=== PATIENT | female | born 1940 | race Caucasian/White ===

== ENCOUNTER 2024-03-12 11:19 | Emergency (ER) | payer MEDICARE, SELFPAY ==
[2024-03-12 11:39] VITALS: BP 142/65; PULSE 83; RESP 18; TEMP 36.8; O2SAT 96; BMI 27.7
--- NOTE | 2024-03-12 12:00 | ED_ITS ---
Discharge Plan Disposition Patient Disposition: Home, Self-Care Condition: Good Prescriptions Prescriptions: New amoxicillin 875 mg tablet 875 mg PO Q12H Qty: 20 0RF benzonatate 100 mg capsule 100 mg PO TIDP PRN (Reason: Cough) Qty: 30 0RF No Action gabapentin 400 mg capsule 400 mg PO DAILY Patient Comments: TAKE 1 CAPSULE BY MOUTH THREE TIMES DAILY levothyroxine 100 mcg tablet 100 mcg PO DAILY losartan 25 mg tablet 25 mg PO DAILY Patient Comments: TAKE 1 TABLET BY MOUTH ONCE DAILY Novolin N NPH U-100 Insulin 100 unit/mL suspension 100 unit SQ DIRECTED Referrals Follow up/Referrals: Provider,Referral, MD [Primary Care Provider] - See instructions Activity Restrictions/Add. Instructions Additional Instructions/Restrictions: Drink plenty of fluids. Take tylenol for pain or fever. Take the medications as directed. Follow up with your regular doctor. GO TO THE ER FOR ANY WORSENING SYMPTOMS Clinical Impressions Clinical Impression: Sinusitis Instructions Patient Instructions: Sinusitis, DI for Sinusitis, Ceftriaxone Injection, Dexamethasone Injection Print Language Print Language: Ukrainian Discharge ED Provider: Wilber Rodriguez [facility] General Stated complaint: cough left eye watering right ear pain Mode of Arrival: Ambulatory Source of Information: Patient Time Seen by Provider: 03/12/24 12:00 Description of Symptoms (Recalled from Triage Doc. by RN): COUGHING, HEAD CONGESTION WITH GREEN DRAINAGE, LEFT EYE RED AND SWOLLEN, EAR PAINS, NOT IMPROVING WITH OTC MEDS HEENT Symptoms (Recalled from RN notes): Yes Resp Symptoms (Recalled from RN notes): No Skin Symptoms (Recalled from RN notes): No MS Symptoms (Recalled from RN notes): No Functional Status (Recalled from RN notes): WNL Related Data Home Medications ?Medication ?Instructions ?Recorded ?Confirmed gabapentin 400 mg capsule 400 mg PO DAILY 03/12/24 03/12/24 insulin NPH isoph U-100 human 100 100 unit SQ DIRECTED 03/12/24 03/12/24 unit/mL subcutaneous suspension (Novolin N NPH U-100 Insulin isophane) levothyroxine 100 mcg tablet 100 mcg PO DAILY 03/12/24 03/12/24 losartan 25 mg tablet 25 mg PO DAILY 03/12/24 03/12/24 Previous Rx's ?Medication ?Instructions ?Recorded amoxicillin 875 mg tablet 875 mg PO Q12H #20 tabs 03/12/24 benzonatate 100 mg capsule 100 mg PO TIDP PRN Cough #30 caps 03/12/24 Allergies Allergy/AdvReac Type Severity Reaction Status Date / Time No Known Allergies Allergy Verified 03/12/24 11:41 Worker's Comp Is this a Worker's Comp case?: No [facility] Disclaimer: The information contained in this section may have been updated after the patient was seen, as this information can be updated by other users. Medical History (Updated 03/12/24 @ 12:39 by Wilber Rodriguez APRN) Diabetes mellitus Social History Smoking Status: Never smoker alcohol intake: never current occupational status: retired ROS Obtained: Yes All systems reviewed & no additional complaints except as documented Constitutional Constitutional: Denies chills, Reports fever(s) and Reports poor appetite Eyes Eyes: Denies eye discharge ENT Ears, Nose, Mouth, and Throat: Denies ear discharge, Reports otalgia, Denies hearing loss, Denies sinus pain and Reports sore throat Cardiovascular Cardiovascular: Denies chest pain and Denies dyspnea Respiratory Respiratory: Denies chest congestion, Reports cough and Denies dyspnea Gastrointestinal Gastrointestingal: Denies abdominal pain, diarrhea, nausea or vomiting Musculoskeletal Musculoskeletal: Denies arthralgias Integumentary/Breasts Skin/Breast: Denies rash Physical Exam General General appearance: alert and in no apparent distress Head Head exam: atraumatic, normocephalic and normal inspection Eye Eye exam: Present normal appearance; Absent PERRL or EOMI ENT ENT exam: Present mucous membranes moist and normal external ear exam Expanded ENT Exam TM/Canal exam: Bilateral TM: erythema, bulging and effusion Nose exam: Absent sinus tenderness Nasal speculum exam: Bilateral: normal Mouth exam: Present normal external inspection and other; Absent drooling Teeth exam: Present normal inspection Throat exam: Present tonsillar erythema and tonsillomegaly Neck Neck exam: Present normal inspection, full ROM and trachea midline; Absent tenderness, meningismus or lymphadenopathy Chest Chest inspection: Present normal inspection and symmetric chest wall rise; Absent tenderness Respiratory Respiratory exam: Present normal lung sounds bilaterally; Absent respiratory distress, wheezes or stridor Cardiovascular Cardiovascular exam: Present regular rate, normal rhythm and normal heart sounds; Absent tachycardia or irregular rhythm Abdominal Exam Abdominal exam: Present soft and normal bowel sounds; Absent distention, tenderness, guarding, rebound or rigidity Extremities Exam Extremities exam: Present normal inspection and normal capillary refill; Absent tenderness, joint swelling or calf tenderness Back Exam Back exam: Present normal inspection and full ROM; Absent tenderness, CVA tenderness (R) or CVA tenderness (L) Neurological Exam Neurological exam: Present alert, oriented X3, CN II-XII intact, normal gait and reflexes normal; Absent motor sensory deficit Psychiatric Psychiatric exam: Present normal affect and normal mood Skin Skin exam: Present warm, dry, intact and normal color Lymphatic Lymphatic Findings: no adenopathy Medical Decision Making Medical Records Medical records reviewed: No I reviewed the patient's medical records. Screening: Per USPSTF and CDC recommendations, given the prevalence of disease in our region, it is our hospital?s policy to screen for HIV and viral Hepatitis for all patients aged 18 and over and those with ongoing risk factors. John Inquiry Pt receiving controlled substance: No Vital Signs: 03/12/24 11:39 Temperature 98.3 F Temperature Source Oral Pulse Rate [Left Radial] 83 Respiratory Rate 18 Blood Pressure [Left Arm] 142/65 H Blood Pressure Mean [Left Arm] 90 02 Sat by Pulse Oximetry 96
[2024-03-12] MEDS: DEXAMETHASONE 4MG/ML 1ML VIAL 6 MG IM (12:15)
[2024-03-12] MEDS: cefTRIAXone 1GM VIAL 1 GM IM (12:15)
[2024-03-12] MEDS: LIDOCAINE 1% 5ML PF VIAL IM (12:16)
[2024-03-12 12:41] VITALS: BP 0/0; PULSE 83; RESP 18; TEMP 36.8
== END 2024-03-12 12:43 | disposition home or self-care (01) ==
PROVIDERS: Emergency Provider Nurse Practitioner Family
DX: J01.90 Acute sinusitis, unspecified (principal)
CPT/HCPCS: 96372; 99213; G0381; J0696; J1100

== ENCOUNTER 2024-03-22 10:37 | Emergency (ER) | payer MEDICARE, SELFPAY ==
[2024-03-22 11:00] VITALS: BP 149/70; PULSE 89; RESP 23; TEMP 36.6; O2SAT 93; BMI 27.7
--- NOTE | 2024-03-22 11:00 | ED_ITS ---
Discharge Plan Disposition Patient Disposition: Home, Self-Care Condition: Good Prescriptions Prescriptions: New azithromycin [Zithromax] 250 mg tablet 250 mg PO UD DOSE PK Qty: 6 0RF Rx Instructions: Take two (2) tablets today, then one (1) tablet days #2 thru #5 benzonatate 100 mg capsule 100 mg PO TIDP PRN (Reason: Cough) Qty: 30 0RF methylprednisolone 4 mg Tablets,Dose Pack 4 mg PO DIRECTED 6 Days Qty: 21 0RF Rx Instructions: Take 1 pack as directed for 6 days No Action gabapentin 400 mg capsule 400 mg PO HS Patient Comments: TAKE 1 CAPSULE BY MOUTH AT BEDTIME levothyroxine 100 mcg tablet 100 mcg PO DAILY Patient Comments: TAKE 1 TABLET BY MOUTH IN THE MORNING cyanocobalamin (vitamin B-12) 1,000 mcg/mL solution 1,000 mcg IM WEEKLY Novolin R Regular U100 Insulin 100 unit/mL solution See Rx Instructions .ROUTE .COMPLEX Rx Instructions: . losartan 25 mg tablet 25 mg PO DAILY Patient Comments: TAKE 1 TABLET BY MOUTH ONCE DAILY nitrofurantoin monohyd/m-cryst 100 mg capsule 100 mg PO DAILY Patient Comments: TAKE 1 CAPSULE BY MOUTH ONCE DAILY WITH FOOD Referrals Follow up/Referrals: Provider,Referral, MD [Primary Care Provider] - See instructions Activity Restrictions/Add. Instructions Additional Instructions/Restrictions: Drink plenty of fluids. Take tylenol or ibuprofen for pain or fever. Take the medications as directed. Follow up with your regular doctor. GO TO THE ER FOR ANY WORSENING SYMPTOMS Don't start the oral steroids (medrol dose pack) until tomorrow since you had the shot here Clinical Impressions Clinical Impression: Acute bronchitis Instructions Patient Instructions: DI for Acute Bronchitis, Dexamethasone Injection Print Language Print Language: Kiswahili Discharge ED Provider: Wilber Rodriguez [facility] HPI General Stated complaint: cough, soa, congested Time Seen by Provider: 03/22/24 11:00 History of Present Illness Provider Complaint: She states that she has had worsening chest and sinus congestion for the past 3 days. She was here about 10 days ago with similar symptoms. She states that she did get some better while on the medications. Related Data Home Medications ?Medication ?Instructions ?Recorded ?Confirmed cyanocobalamin (vitamin B-12) 1,000 mcg IM WEEKLY 03/22/24 03/22/24 1,000 mcg/mL injection solution gabapentin 400 mg capsule 400 mg PO HS 03/22/24 03/22/24 insulin regular human 100 unit/mL See Rx Instructions .Route .COMPLEX 03/22/24 03/22/24 injection solution (Novolin R Regular U-100 Insulin) levothyroxine 100 mcg tablet 100 mcg PO DAILY 03/22/24 03/22/24 losartan 25 mg tablet 25 mg PO DAILY 03/22/24 03/22/24 nitrofurantoin 100 mg PO DAILY 03/22/24 03/22/24 monohydrate/macrocrystals 100 mg capsule Previous Rx's ?Medication ?Instructions ?Recorded azithromycin 250 mg tablet 250 mg PO UD DOSE PK #6 tabs 03/22/24 (Zithromax) benzonatate 100 mg capsule 100 mg PO TIDP PRN Cough #30 caps 03/22/24 methylprednisolone 4 mg tablets in 4 mg PO DIRECTED 6 days #21 tabs 03/22/24 a dose pack Allergies Allergy/AdvReac Type Severity Reaction Status Date / Time No Known Allergies Allergy Verified 03/12/24 11:41 [facility] Disclaimer: The information contained in this section may have been updated after the patient was seen, as this information can be updated by other users. Medical History (Updated 03/22/24 @ 12:33 by Wilber Rodriguez APRN) Cancer Thyroid disease Kidney stone Urinary tract infection Diabetes mellitus, type 2 History of stroke Hypertension Diabetes mellitus Surgical History (Updated 03/22/24 @ 11:16 by aRchael Thompson RN) History of cholecystectomy History of appendectomy History of hysterectomy Social History (Updated 03/13/24 @ 19:54 by Wilber Rodriguez APRN) Smoking Status: Never smoker alcohol intake: never current occupational status: retired Travel in the last 8 weeks: None ROS Obtained: Yes All systems reviewed & no additional complaints except as documented Constitutional Constitutional: Reports poor appetite Eyes Eyes: Reports system reviewed and no additional complaints, except as documented ENT Ears, Nose, Mouth, and Throat: Reports as per HPI Cardiovascular Cardiovascular: Reports system reviewed and no additional complaints, except as documented and Denies chest pain Respiratory Respiratory: Denies shortness of breath, Reports chest congestion, Reports cough, Denies stridor and Denies wheezing Gastrointestinal Gastrointestingal: Reports system reviewed and no additional complaints, except as documented; Denies abdominal pain, diarrhea or vomiting Musculoskeletal Musculoskeletal: Reports system reviewed and no additional complaints, except as documented and Denies arthralgias Integumentary/Breasts Skin/Breast: Reports system reviewed and no additional complaints, except as documented and Denies rash Neurologic Neurologic: Denies paresthesias Allergic/Immunologic Allergic/Immunologic: Denies wheezing Physical Exam General General appearance: alert and in no apparent distress Eye Eye exam: Present normal appearance, PERRL and EOMI ENT ENT exam: Present mucous membranes moist and normal external ear exam Expanded ENT Exam External ear exam: Present normal external inspection TM/Canal exam: Bilateral TM: erythema and bulging Nose exam: Absent sinus tenderness Nasal speculum exam: Bilateral: normal Mouth exam: Present normal external inspection; Absent drooling Teeth exam: Present normal inspection Throat exam: Present tonsillar erythema and tonsillomegaly Neck Neck exam: Present normal inspection, full ROM and trachea midline; Absent tenderness, lymphadenopathy or thyromegaly Chest Chest inspection: Present normal inspection and symmetric chest wall rise; Absent tenderness or rash Respiratory Respiratory exam: Present normal lung sounds bilaterally; Absent respiratory distress, wheezes, stridor or accessory muscle use Cardiovascular Cardiovascular exam: Present regular rate, normal rhythm and normal heart sounds Abdominal Exam Abdominal exam: Present soft; Absent distention, tenderness, guarding, rebound or rigidity Extremities Exam Extremities exam: Present normal inspection, full ROM and normal capillary refill; Absent tenderness or calf tenderness Back Exam Back exam: Present normal inspection and full ROM; Absent tenderness Neurological Exam Neurological exam: Present alert and oriented X3 Psychiatric Psychiatric exam: Present normal affect and normal mood Skin Skin exam: Present warm, dry, intact and normal color Lymphatic Lymphatic Findings: no adenopathy Medical Decision Making Medical Records Medical records reviewed: No I reviewed the patient's medical records. Screening: Per USPSTF and CDC recommendations, given the prevalence of disease in our region, it is our hospital?s policy to screen for HIV and viral Hepatitis for all patients aged 18 and over and those with ongoing risk factors. John Inquiry Pt receiving controlled substance: No Lab Data Lab results reviewed: Yes I reviewed the patient's lab results.
--- NOTE | 2024-03-22 11:04 | XR_ITS ---
FINAL REPORT CLINICAL HISTORY: Nonspecific cough, congestion COMPARISON: None FINDINGS: Two views of the chest were obtained. The heart size and pulmonary vascularity are within normal limits. The mediastinum is normal. There are mild left base opacities which likely represent atelectasis or pneumonia. There is no pneumothorax. The bony thorax is intact. IMPRESSION: Probable left base atelectasis or pneumonia. Reviewed, Interpreted and Dictated by Evangelista Pak III, MD Transcribed by Ana Peter Authenticated and [facility]
[2024-03-22] MEDS: DEXAMETHASONE 4MG/ML 1ML VIAL 8 MG IM (12:25)
[2024-03-22] MEDS: LIDOCAINE 1% 5ML PF VIAL IM (12:25)
[2024-03-22] MEDS: cefTRIAXone 1GM VIAL 1 GM IM (12:25)
[2024-03-22 12:32] VITALS: BP 149/70; PULSE 89; RESP 23; TEMP 36.6; O2SAT 93
[2024-03-22 12:44] LABS: Coronavirus 19, PCR Not Detected (NotDetected); Influenza A, PCR Not Detected (NotDetected); Influenza B, PCR Not Detected (NotDetected)
[2024-03-22 13:36] LABS: RSV Rapid Ab Screen Negative (Negative)
== END 2024-03-22 12:43 | disposition home or self-care (01) ==
PROVIDERS: Emergency Provider Nurse Practitioner Family
DX: J20.9 Acute bronchitis, unspecified (principal)
CPT/HCPCS: 71046; 87636; 87807; 96372; 99213; G0381; J0696; J1100

== ENCOUNTER 2025-02-21 12:41 | Outpatient (CLI) | payer MEDICARE, SELFPAY ==
--- OUTSIDE RECORDS SUMMARY | 2025-02-22 14:15 | XMS_ITS | Continuity of Care Document ---
Author Organization [facility] Nimisha GarciaNAPLES Address [address] Care Team Providers Care [employer] Cook Name Role Phone ROCA, GILBERTO Primary Care Provider NANCI SANTIZO Applied Psychology Professor Unavailable SHASTA CARLSON [employer] Operations Engineer Assessment No assessment recorded. Plan of Treatment Reminders Order Date Submit Date Provider Last Modified By Organization Details Last Modified Time Details Appointments *Follow- up 15 2024 09:00A Sharita SANTIZO NP Not available Not available Not available Lab None recorded . Referral None recorded . Procedures None recorded . Surgeries None recorded . Imaging electroc ardiogra m 2024 [address] [place] In-Office Order, Internal Use Only DO Not Attach Compendium DO Not Attach Compendium, Do Not Delete/merge, [id number] 12/29/2024 13:41:08 SPECT, myocardi al perfusio n, multiple [address] (Central Scheduling), [address] [place], [address], 02/20/2025 11:43:40 US, doppler echocard iogram, w/ color flow [address] ([facility]), [address] [place], [address], 02/20/2025 11:43:53 Medication Orders losartan 50 mg tablet 2024 025 [facility], [address], [place], [address], 12/29/2024 11:13:06 Patient TargetsNo targets recorded. Patient InstructionsNo instructions recorded. Reason for Referral None Reported. Results Created Date Observation Date Name Description Value Unit Range Abnormal Flag Note LastModifiedBy Organization Detail LastModifiedTime 12/28/19 elect rocar diogr am No observ ation record ed. [facility]ER In-Office Order Internal Use Only DO Not Attach Compendium DO Not Attach Compendium, Do Not Delete/merge, [id number] 12/29/2024 10:10:13 12/30/19 elect rocar diogr am No observ ation record ed. [email or web address] Not Available 14:54:11 Result Notes None recorded. 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 446953643 Active 2024 NANCI SANTIZO NP [address], [place], [address] , [place] - [facility] 17:05:30 Chronic depression 850241114 Active [address], [place], [address] , [place] - [facility] 17:05:47 Generalized anxiety disorder 00369713 Active 20[address], [place], [address] , [place] [facility] 17:05:53 Hypothyroidis m 76272129 Active 20[address], [place], [address] , [place] - [facility] 17:06:18 Chronic kidney disease 972493175 Active 2024 NANCI SANTIZO, SNAG GRINDER [address] [facility] [address], [place], [address] , [place] - [facility] 17:06:30 Problem Notes None recorded. Procedures Surgical History Date Name Laterality Status Provider Name and Address Organization Details Recorded Time 04/13/19 23 Colon Surgery completed Danette [place] - [facility] 12/29/2024 10:25:05 04/13/19 16 screening for malignant neoplasm of colon completed Danette [place] - [facility] 12/29/2024 10:24:49 04/13/19 08 dissection of lymph node completed Danette [place] - [facility] 12/29/2024 10:24:18 04/13/19 06 Lumbar Spine Surgery completed Danette [place] - [facility] 12/29/2024 10:23:18 04/13/18 76 Back Surgery completed Danette [place] - [facility] 12/29/2024 10:22:57 04/13/18 75 Cholecystectomy completed Sold [place] - [facility] 12/29/2024 10:21:50 04/13/18 74 thyroidectomy completed Danette [place] - [facility] 12/29/2024 10:22:00 04/13/18 72 Hysterectomy completed Danette [place] - [facility] 12/29/2024 10:20:09 04/13/18 68 kidney operation completed Danette [place] - [facility] 12/29/2024 10:20:14 Imaging Results None recorded. Procedure Notes None recorded. Medical Equipment None Reported. Allergies No known drug allergies Medications Name Sig Start Date Stop Date Status Note LastModified by Organization Details LastModified Time losartan 50 mg tablet TAKE 1 TABLET BY MOUTH ONCE DAILY IN THE MORNING active Not Available Not Available No t Available azithromyci n 250 mg tablet TAKE 2 TABLETS BY MOUTH ON DAY 1, AND THEN TAKE 1 TABLET BY MOUTH ONCE A DAY ON DAY 2 THROUGH DAY 5 12/28 completed Not Available Not Available Not Available Novolin N NPH U-100 Insulin isophane 100 unit/mL subcutaneou s susp INJECT 50 UNITS SUBCUTANE OUSLY TWICE DAILY DIRECTED active Not Available Not Available No t Available gabapentin 400 mg capsule TAKE 1 CAPSULE BY MOUTH NIGHTLY active Not Available Not Available No t Available prednisone 5 mg tablet TAKE 1 TABLET BY MOUTH TWICE DAILY 12/29 completed Not Available Not Available Not Available ciprofloxac in 500 mg tablet TAKE 1 TABLET BY MOUTH TWICE DAILY 12/28 completed Not Available Not Available Not Available levothyroxi ne 100 mcg tablet TAKE 1 TABLET BY MOUTH IN THE MORNING active Not Available Not Available No t Available amoxicillin 875 mg tablet TAKE 1 TABLET BY MOUTH EVERY 12 HOURS FOR 10 DAYS 12/28 completed Not Available Not Available Not Available Novolin R Regular U-100 Insulin 100 unit/mL injection solution INJECT 15 UNITS SUBCUTANE OUSLY TWICE DAILY active Not Available Not Available No t Available imiquimod 5 % topical cream packet APPLY TO THE AFFECTED AREA(S) ON RIGHT HAND BY TOPICAL ROUTE ONCE DAILY AT NIGHT AND WASH OFF NEXT MORNING FOR 2 WEEKS THEN STOP FOR 2 WEEKS (THAT IS ONE CYCLE) REPEAT 2 MORE CYCLES FOR A TOTAL OF 6 WEEKS OF TREATMENT 12/29 completed Not Available Not Available Not Available benzonatate 100 mg capsule TAKE 1 CAPSULE BY MOUTH THREE TIMES DAILY NEEDED FOR COUGH 12/29 completed Not Available Not Available Not Available cyanocobala min (vit B-12) 1,000 mcg/mL injection solution INJECT 1 ML (CC) SUBCUTANE OUSLY ONCE EVERY MONTH 12/29 completed Not Available Not Available Not Available losartan 25 mg tablet TAKE 1 TABLET BY MOUTH ONCE DAILY active Not Available Not Available No t Available hydrochloro thiazide 12.5 mg capsule TAKE 1 CAPSULE BY MOUTH ONCE DAILY IN THE MORNING 12/29 completed Not Available Not Available Not Available cefuroxime axetil 500 mg tablet TAKE 1 TABLET BY MOUTH EVERY 12 HOURS FOR 5 DAYS 12/28 completed Not Available Not Available Not Available methylpredn isolone 4 mg tablets in a dose pack TAKE BY MOUTH DIRECTED ON INSIDE OF PACKAGE 12/29 completed Not Available Not Available Not Available nitrofurant oin monohydrate /macrocryst als 100 mg capsule TAKE 1 CAPSULE BY MOUTH ONCE DAILY WITH FOOD FOR 90 DAYS 12/29 completed Not Available Not Available Not Available magnesium active Not Available Not Layne ilable Not Available Fish Oil active Not Available Not Avai lable Not Available Vitamin D3 active Not Available Not Av ailable Not Available Centrum active Not Available Not Avail able Not Available alpha lipoic acid active Not Available Not Available Not Available Accu-Chek Guide test strips USE 1 UP TO 4 TIMES DAILY active Not Available Not Available No t Available Accu-Chek Guide Glucose Meter USE UP TO 4 TIMES DAILY active Not Available Not Available No t Available FreeStyle Hi 14 Day Sensor kit USE DIRECTED REPLACE SENSOR EVERY 14 DAYS active Not Available Not Available No t Available turmeric active Not Available Not Avai lable Not Available Ultra-Fine Insulin Syringe 0.5 mL 31 gauge x 5/16 USE 1 SYRINGE TWICE DAILY active Not Available Not Available No t Available Vitals Date Recorded Body height Body mass index (BMI) Body weight Heart rate Oxygen saturation Oxygen saturation in Arterial blood by Pulse oximetry Systolic And Diastolic Provider Name and Address Organization Details Last Updated DateTime 167.64 cm 29.4 kg/m2 49658.8 1 g 86 /min 93 % 93 % 146/78 mm[Hg] Danette Linton [facility] 10:32:59 Social History Question Answer Notes LastModified by D-Sight ion Details LastModified Time Tobacco Smoking Status Never Smoker Danette rao, [facility] 12/29/2024 10:19:23 Do You Have An Advance Directive? No [email or web address] Information not available 12/29/2024 Are You Blind Or Do You Have Difficulty Seeing? No Information not available 12/29/2024 Is Blood Transfusion Acceptable In An Emergency? Yes [email or web address] Information not available 12/29/2024 What Is Your Level Of Caffeine Consumption? Moderate [email or web address] Information not available 12/29/2024 Are You Deaf Or Do You Have Serious Difficulty Hearing? No [email or web address] Information not available 12/29/2024 What Type Of Diet Are You Following? REGULAR [email or web address] Information not available 12/29/2024 Do You Have A Medical Power Of Hydrography Teacher? Yes [email or web address] Information not available 12/29/2024 Do You Use Your Seat Belt Or Car Seat Routinely? Yes [email or web address] Information not available 12/29/2024 Do You Have Smoke And Carbon Monoxide Detectors In Your Home? Yes [email or web address] Information not available 12/29/2024 Are You Passively Exposed To Smoke? No [email or web address] Information not available 12/29/2024 Have You Recently Traveled Abroad? No [email or web address] Information not available 12/29/2024 Do You Have Difficulty Walking Or Climbing Stairs? No Information not available 12/29/2024 Do You Have Any Dietary Restrictions? No [email or web address] Information not available 12/29/2024 Sex: Female Functional Status Question Answer Note LastModified by Organizat ion Details LastModified Time Do you use any illicit or recreational drugs? No [email or web address] Information not available 12/29/2024 Do you or have you ever used any other forms of tobacco or nicotine? No [email or web address] Information not available 12/29/2024 What is your level of alcohol consumption? None [email or web address] Information not available 12/29/2024 Do you have difficulty doing errands alone? Yes [email or web address] Information not available 12/29/2024 Are you able to care for yourself independently? Yes Information not available 12/29/2024 Do you have difficulty dressing, bathing, grooming, or toileting? No [email or web address] Information not available 12/29/2024 Mental Status Question Answer Note LastModified by Organization D etails LastModified Time Do you have difficulty concentrating, remembering or making decisions? No [email or web address] Information no t available 12/29/2024 Family History Relationship Description Onset Age of this Age Resolved Age Notes LastModified by Organization Details LastModified Time Mother Heart disease [email or web address] Not available 12/12 10:19:02 Son Heart disease [email or web address] Not available 12/12 10:19:02 Sister Heart disease [email or web address] Not available 12/12 10:19:11 Medical History Condition Response STROKE Y KIDNEY STONES Y DIABETES Y CHRONIC PAIN N CONGESTIVE HEART FAILURE N COPD N RHEUMATOID ARTHRITIS Y HYPERTHYROIDISM N HYPOTHYROIDISM N CAROTID BLOCKAGE N SEIZURES N DEPRESSION (INCLUDING POST ) Y THYROID DISEASE Y ATHEROSCLEROSIS N HEART STENTS N ANEURYSM N GERD N FIBROMYALGIA N CORONARY ARTERY DISEASE (CAD) N CANCER Y HERNIA N HYPERCHOLESTEROLEMIA N ARTHRITIS Y HEADACHES Y USE OF BLOOD THINNERS N EMPHYSEMA N CROHN'S DISEASE N PERIPHERAL VASCULAR DISEASE N HEARTBURN / REFLUX Y CAD N HYPERLIPIDEMIA Y BLOOD CLOTS N DVT - DEEP VEIN THROMBOSIS N ASTHMA N PULMONARY DISEASE N DEMENTIA N IMPLANTED DEFIBRILLATOR N VASCULAR DISEASE N LUNG DISORDER N HYPERTENSION Y CARDIAC ARRHYTHMIA N ANXIETY DISORDER N BLOOD TRANSFUSION N ANEMIA/BLOOD DISORDER N ATRIAL FIBRILLATION N BRAIN TUMOR N HEART DISEASE N PCOS N OSTEOARTHRITIS Y HEART ATTACK ([place]) N GLAUCOMA N Gynecological HistoryNo gynecological history recorded. Obstetrics History GPAL:G 0 P 0 0 0 0 Past Encounters Encounter ID Performer Location Encounter Start Date Encounter Closed Date Diagnosis/Indication Diagnosis SNOMED-CT Code Diagnosis ICD10 Code Diagnosis IMO Codes Diagnosis Note [id number] Raulito Jaimes MD [facility] [address] [address] 12/29/2024 10:07:12 12/29/2024 11:47:12 Chest pain 32707293 R07.9 78995952 - Reportedly with normal LHC in 1998- EKG without ST segment abnormalit ies- TTE and NST as below Essential hypertension 46235139 I10 58192 - Increase losartan- Educated about low sodium, heart healthy diet- Continue BP log and bring to f/u visit Polyneurop athy due to type 2 diabetes mellitus 979638413 E11.42 Z79.4 98409244 - Last a1c 6.2%, continue current regimen Health Concerns Section Related Observation LastModified by Organization Detai ls LastModified Time None Recorded Concern Status LastModified by Organization Details LastModified Time None Recorded Payers Encounter Date Sequence Insurance Name Policy Number Policy Roca Covered Member ID Roca Member ID Guarantor Name 12/29/2024 1 [facility] (MEDICARE REPLACEMENT/A DVANTAGE - PPO) [id number] Josie Hammond [id number] Josie Hammond Notes Date Note Type Note Provider Name and Address Organization Details Recorded Time 12/29/2024 text/html ROS as noted in the HPI 84 y/o female pt presents to clinic with complaints of chest pain. She states she has not had chest pain in a few weeks, and the chest pain is brought on by stress. She describes it as an aching sensation that radiates up her jaw and down both arms into her back. Tums and rest sometimes alleviates it, more stress aggravates it. She does admit to shortness of breath but no palpitations or edema. States that she had a left heart cath in 1998 that was within normal limits. Noted that her blood pressure is elevated at 146/78 today, she reports that BP at home runs 140-150/70s to 80s. We discussed a nuclear stress test and echocardiogram next week given she will be out of town until [place]. Follow-up after she gets back from her trip, will notify patient of test results. NANCI SANTIZO, VIDA [address] [facility] [address], [place], [address], [facility] 12/29/2024 11:22:19 OBGyn Episode No OBEpisode recorded.
--- OUTSIDE RECORDS SUMMARY | 2025-02-22 14:16 | XMS_ITS | Clinical Summary ---
Author Organization [facility] Address [address] [place] [address] Care Team Providers Care Member Of Technical Staff Name Role Phone Augie Garcia Primary Care Provider Allergies No known active allergies Medications hydrochlorothiaz oniel (HYDRODIURIL) 12.5 MG tablet Take 1 tablet by mouth Daily. 3 9 Active Alpha-Lipoic Acid 100 MG capsule Take by mouth. Activ e chlorothiazide (DIURIL) 250 MG tablet Take 250 mg by mouth Daily. Active Cholecalciferol (VITAMIN D) 2000 units tablet Take 2,000 Units by mouth Daily. Active Shelby-3 Fatty Acids (FISH OIL) 1000 MG capsule capsule Take by mouth. Activ e Multiple Vitamin (MULTIVITAMIN) tablet Take 1 tablet by mouth Daily. 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 100 each 5 9 Active NOVOLIN N 100 UNIT/ML injectionIndicat ions:Type 2 diabetes mellitus with diabetic neuropathy, unspecified whether longterm insulin use 60units am and 40 units pm 90 mL 3 0 Active insulin regular (NovoLIN R ReliOn) 100 UNIT/ML injectionIndicat ions:Type 2 diabetes mellitus with diabetic neuropathy, unspecified whether oysterman insulin use 20U tid ac + SSI if bs 150-200 2U, 201-250 4U, 251-300 6U, 301-350 8U >350 10U can call 80 mL 3 0 Active Blood Glucose Monitoring Suppl (ACCU-CHEK FLAVIA PLUS) w/Device kitIndications:T ype 2 diabetes mellitus with hypoglycemia without coma, with long-term current use of insulin 1 Device by Other route Daily. Dx. E11.9 1 kit 0 Active Accu-Chek Softclix Lancets lancetsIndicatio ns:Type 2 diabetes mellitus with hypoglycemia without coma, with long-term current use of insulin 1 each by Other route Daily. Use as instructed. Dx. E11.9 100 each 3 0 Active lisinopril (PRINIVIL,ZESTRI L) 20 MG tabletIndication s:Secondary hypertension Take 1 tablet by mouth Daily. 90 tablet 1 0 Active levothyroxine (SYNTHROID, LEVOTHROID) 100 MCG tabletIndication s:Thyroid disease Take 1 tablet by mouth Daily. 90 tablet 1 0 Active cephalexin (KEFLEX) 250 MG capsule Take 250 mg by mouth Daily. Active diclofenac (FLECTOR) 1.3 % patch patchIndications :Fusion of spine of lumbar region Apply 1 patch topically to the appropriate area as directed 2 (Two) Times a Day. 60 patch 1 0 Active glucose blood (Accu-Chek Flavia Plus) test stripIndications :Type 2 diabetes mellitus with hypoglycemia without coma, with long-term current use of insulin 1 each by Other route 4 (Four) Times a Day Before Meals & at Bedtime As Needed (hypoglycemia). Use as instructed. Dx. E11.9 500 each 3 0 Active gabapentin (NEURONTIN) 400 MG capsuleIndicatio ns:Diabetic peripheral neuropathy Take 1 capsule by mouth 3 (Three) Times a Day. 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 10/13/2018 Lumbar spinal stenosis 10/08/2012 Fusion of spine of lumbar region 04/20/2012 Overview (10/13/2018): Overview: L2-S1 Low back pain 04/20/2012 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 Immunizations Immunization Administration Dates Next Due Fluad Quad 65+ 02/07/2020 Fluzone High-Dose 65+YRS 01/24/2019 Pneumococcal Conjugate 13-Valent (PCV13) 020 Pneumococcal Polysaccharide (PPSV23) 04/13/2012 Family History Medical History Relation Name Comments Alcohol abuse Father Arthritis Father COPD Father Cancer Father Early Father Hypertension Father COPD Mother Cancer Mother Early Mother Heart disease Mother Hypertension Mother Hypertension Paternal Grandmother Stroke Paternal Grandmother Relation Name Status Comments Father Maternal Grandfather Maternal Grandmother Mother Paternal Grandfather Paternal Grandmother Social History Tobacco Use Types Packs/Day Years Used Date Smoking Tobacco: Never Smokeless Tobacco: Never Alcohol Use Standard Drinks/Week Comments No 0 (1 standard drink = 0.6 oz pur e alcohol) AUDIT-C Answer Date Recorded Frequency of Alcohol Consumption Never 10/13/2018 Average Number of Drinks Not on file 019 Frequency of Binge Drinking Not on file 06/2018 PHQ-2 Answer Date Recorded Retired Total Score 2 02/07/2020 Abuse Screen Answer Date Recorded Unsafe at Home or Work/School Not on file Feels Threatened by Someone? Not on file 01/2023 Does Anyone Keep You from Co ntacting Others or Doint Things Outside the Home? Not on file 01/20/2023 Physical Sign of Abuse Present Not on file 1 Housing Stability Answer Date Recorded Current Living Arrangements Not on file 01/11 Potentially Unsafe Housing Conditions Not on monisha e 01/20/2023 Family and Community Support Answer Martir e Recorded Help with Day-to-Day Activities Not on file 01/20/2023 Lonely or Isolated Not on file 01/20/2023 Employment Answer Date Recorded Do you want help finding or keeping work or a ricky b? Not on file 01/20/2023 Disabilities Answer Date Recorded Concentrating, Remembering, or Making Decisions Difficulty Not on file 01/20/2023 Doing Errands Independently Difficulty Not on fi le 01/20/2023 Education Answer Date Recorded Help with school or training? Not on file Preferred Language Not on file 01/20/2023 Comments No Sex and Gender Information Value Date Recorded Sex Assigned at Not on file Legal Sex Female 12:30 PM EDT Gender Identity Not on file Sexual Orientation Not on file Last Filed Vital Signs Vital Sign Reading Time Taken Comments Blood Pressure 128/62 02/07/2020 1:02 PM EDT Pulse 83 02/07/2020 1:02 PM EDT Temperature 36.7 C (98 F) 02/07/2020 1:02 PM EDT Respiratory Rate - - Oxygen Saturation 99% 02/07/2020 1:02 PM EDT Inhaled Oxygen Concentration - - Weight 82.6 kg (182 lb) 02/07/2020 1:02 PM EDT Height 172.7 cm (5' 8 ) 02/07/2020 1:02 PM EDT Body Mass Index 27.67 02/07/2020 1:02 PM EDT Plan of Treatment Health Maintenance Due Date Last Done Comments TDAP/TD VACCINES (1 - Tdap) 1959 ZOSTER VACCINE (1 of 2) 1992 RSV Vaccine - Adults (1 - 1- dose 75+ series) 2017 ANNUAL PHYSICAL 10/13/2018 DXA SCAN 03/22/2021 03/22/2019 LIPID PANEL 07/09/2021 07/09/2020, 10/13, 08/04/2019, Additional history exists INFLUENZA VACCINE 11/11/2024 02/07/2020, 01/24/2019 COVID-19 Vaccine ( - 2023-2 5 season) 2024 URINE MICROALBUMIN-CREATININ E RATIO (uACR) Discontinued 04/28/2019 Pneumococcal Vaccine 50+ Completed 08/04/2019, 04/2012 HEMOGLOBIN A1C Discontinued 11/29/2020, 08/11, 07/09/2020, Additional history exists Procedures Procedure Name Priority Date/Time Associated Diagnosis Comments HEMOGLOBIN A1C Routine 11/11/2019 11:23 AM EDT Type 2 diabetes mellitus with hypoglycemia without coma, with long-term current use of insulin LIPID PANEL Routine 11/11/2019 11:23 AM EDT Type 2 diabetes mellitus with hypoglycemia without coma, with long-term current use of insulin MICROALBUMIN / CREATININE URINE RATIO Routine 04/28/2019 9:30 AM EST Type 2 diabetes mellitus with other specified complication, unspecified whether oysterman insulin use DEXA BONE DENSITY AXIAL Routine 03/22/2019 9:48 AM EST Post-menopausal At high risk for osteoporosis from Last 3 Months or Most Recently Relevant to Health Maintenance Results * (ABNORMAL) Hemoglobin A1c (11/11/2019 11:23 AM EDT) Hemoglobin A1C 5.80(H) 4.80 - 5.60 % [facility] Comment: Hemoglobin A1C Ranges: Increased Risk for Diabetes 5.7% to 6.4% Diabetes >= 6.5% Diabetic Goal < 7.0% Blood 11/11/2019 11:2 3 AM EDT 11/11/2019 Narrative [facility] ([facility]) - 11/12/2019 3:07 AM EDT Performed at: [address] [place] [id number] Occ Ther: Augie Hurley MD, Phone: [phone] Patient Fasting: N us Augie Garcia DO LAB BLOOD ORDERABLES Final R esult [facility] ([facility]) [address] [place] [address], [place] [phone] [facility] [address] [place] [address], [place] [phone] * (ABNORMAL) Lipid Panel (11/11/2019 11:23 AM EDT) Total Cholesterol 134 0 - 200 mg/dL [facility] Triglycerides 173(H) 0 - 150 mg/dL [facility] HDL Cholesterol 48 40 - 60 mg/dL [facility] VLDL Cholesterol 34.6 mg/dL [facility] LDL Cholesterol 51 0 - 100 mg/dL [facility] Blood 11/11/2019 11:2 3 AM EDT 11/11/2019 Narrative [facility] ([facility]) - 11/12/2019 3:07 AM EDT Performed at: [address] [place] [id number] Occ Ther: Augie Hurley MD, Phone: [phone] Patient Fasting: N us Augie Garcia DO LAB BLOOD ORDERABLES Final R esult [facility] ([facility]BUL[facility]ORY) [address] [place] [address], [facility] [address] [place] [address], * Microalbumin / Creatinine Urine Ratio - Urine, Clean Catch (04/28/2019 9:30 AM EST) Creatinine, Urine 97.0 Not Estab. mg/dL [facility] Microalbumin, Urine 10.2 Not Estab. ug/mL [facility] Microalbumin/Cre atinine Ratio 10.5 0.0 - 30.0 mg/g creat [facility] Comment: Normal: 0.0 - 30.0 Albuminuria: 31.0 - 300.0 Clinical albuminuria: >300.0 Effective May 02, 2019 the reference interval for Albumin/Creatinine Ratio will be changing to: Normal: 0 - 29 Moderately increased: 30 - 300 Severely Increased: >300 The result type will also be changing to 0. Urine Urine specimen collection, clean catch / Unknown 04/28/2019 9:30 AM EST 04/28/2019 Narrative [facility] ([facility]) - 04/29/2019 10:36 AM EST Performed at: [address] [place] [address] [address] [place], [place] [id number] Occ Ther: Grant Merritt PhD, Phone: [phone] us Linda Donis APRN URINE ORDERABLES Final Result [facility] ([facility]) [address] [place] [address], [facility] [address] [place] [address], * DEXA Bone Density Axial (03/22/2019 9:48 AM EST) Anatomical Region Laterality Modality Wrist, Hip, L-spine N/A Other 03/22/2019 6:26 PM EST Impressions 03/22/2019 6:26 PM EST Normal bone density. This report was finalized on 03/22/2019 6:[address] Jayesh Monge M.D. Narrative 03/22/2019 6:26 PM EST BONE MINERAL DENSITOMETRY HISTORY: 79 years-old female. Composite age 57. Prior lumbar spine surgery. COMPARISON: None. TECHNIQUE: The T score compares the patient's bone mineral density with the peak bone mass of young normal patients. Patients with T-scores between 1.0 and 2.5 standard deviations below the mean are osteopenic. Patients with T-scores greater than 2.5 standard deviation below the mean are osteoporotic. The Z score compares the patient's bone mineral density with sex and age matched patients. Z score of -2.0 and lower is an indication of low mineral density for the patient's age. FINDINGS: Lumbar T score is evaluated due to the presence of hardware. Left hip density is lowest at the femoral neck where the T score is 0.2. Right hip density is lowest at the femoral neck where the T score is 0.4. Procedure Note Jayesh Monge MD - 03/22/2019 BONE MINERAL DENSITOMETRY HISTORY: 79 years-old female. Composite age 57. Prior lumbar spine surgery. COMPARISON: None. TECHNIQUE: The T score compares the patient's bone mineral density with the peak bone mass of young normal patients. Patients with T-scores between 1.0 and 2.5 standard deviations below the mean are osteopenic. Patients with T-scores greater than 2.5 standard deviation below the mean are osteoporotic. The Z score compares the patient's bone mineral density with sex and age matched patients. Z score of -2.0 and lower is an indication of low mineral density for the patient's age. FINDINGS: Lumbar T score is evaluated due to the presence of hardware. Left hip density is lowest at the femoral neck where the T score is 0.2. Right hip density is lowest at the femoral neck where the T score is 0.4. IMPRESSION: Normal bone density. This report was finalized on 03/22/2019 6:[address] Jayesh Monge M.D. Linda Donis APRN IM DXA ORDERABLES Final Resul t from Last 3 Months or Most Recently Relevant to Health Maintenance Insurance [employer]AGE Care Teams Member Of Technical Staff Relationship Specialty Start Date End Date Augie Garcia DO [address] [place] [address] PCP - General Family Medicine 05/18/20
--- OUTSIDE RECORDS SUMMARY | 2025-02-22 14:17 | XMS_ITS | Clinical Summary ---
Author Organization [facility] Address [address] [place] [address] Phone Care Team Providers Care Type Soldering Machine Tender Name Role Phone Isabel, Colten CENTENO Primary Care Provider [phone] Allergies No known active allergies Medications Medication Sig Dispensed Refills Start Date End Date Status lisinopril (PRINIVIL,ZESTRIL) 20 MG tablet Take 1 tablet (20 mg total) by mouth daily Active levothyroxine (SYNTHROID, LEVOTHROID) 100 MCG tablet Take 1 tablet (100 mcg total) by mouth daily Active Vitamin D3 (VITAMIN D3) 2000 UNITS capsule Take 1 tablet/capsule (2,000 Units total) by mouth daily Active insulin regular (HumuLIN,NovoLIN) 100 UNIT/ML injection Inject 20 Units under the skin 2 (two) times a day Active fish oil-omega-3 fatty acids 1000 MG Take 2 capsules (2 g total) by mouth daily Active insulin NPH (HumuLIN,NovoLIN) 100 UNIT/ML injection Inject 50 Units under the skin daily Active gabapentin (NEURONTIN) 400 MG capsule Take 1 capsule (400 mg total) by mouth 3 (three) times a day as needed Active insulin regular (HumuLIN,NovoLIN) 100 UNIT/ML injection Inject 10 Units under the skin daily- 0600 As needed in the afternoon. Active hydroCHLOROthiazide (MICROZIDE) 12.5 MG capsule Take 1 tablet/capsule (12.5 mg total) by mouth daily Active ascorbic acid 500 MG tablet Take 1 tablet (500 mg total) by mouth daily Active b complex vitamins capsule Take 1 capsule by mouth daily Active zinc sulfate (ZINCATE) 220 (50 Zn) MG capsule Take 1 capsule (220 mg total) by mouth daily Active Vitamins/Minerals Take 1 tablet by mouth daily Active Active Problems Problem Noted Date Diagnosed Date SBO (small bowel obstruction) 08/03/2020 Small bowel obstruction 08/03/2020 Social History Tobacco Use Types Packs/Day Years Used Date Smoking Tobacco: Never Smokeless Tobacco: Never Alcohol Use Standard Drinks/Week Comments Never 0 (1 standard drink = 0.6 oz pur e alcohol) AUDIT-C Answer Date Recorded Q1: How often do you have a drink containing alc ohol? Never 04/01/2020 Average Number of Drinks Not on file 020 Frequency of Binge Drinking Not on file 03/14 Sex and Gender Information Value Date Recorded Sex Assigned at Not on file Gender Identity Not on file Sexual Orientation Not on file Last Filed Vital Signs Vital Sign Reading Time Taken Comments Blood Pressure 131/58 04/17/2022 5:00 PM TANK FARM ATTENDANT Pulse 78 04/17/2022 5:00 PM TANK FARM ATTENDANT Temperature 35.8 C (96.5 F) 04/17/2022 5:00 PM TANK FARM ATTENDANT Respiratory Rate 16 04/17/2022 5:00 PM TANK FARM ATTENDANT Oxygen Saturation 93% 04/17/2022 5:00 PM TANK FARM ATTENDANT Inhaled Oxygen Concentration - - Weight 81.6 kg (179 lb 14.3 oz) 04/15/2022 2:57 AM TANK FARM ATTENDANT Height 167.6 cm (5' 6 ) 04/15/2022 2:57 AM TANK FARM ATTENDANT Body Mass Index 29.04 04/15/2022 2:57 AM TANK FARM ATTENDANT Plan of Treatment Not on file Advance Directives Documents on File Type Date Recorded Patient Instrument Calibrator Expl anation Advance Directives and Livin g Will 05/02/2022 5:51 PM * Full Code (Latest Code Status on File) Date Activated Date Inactivated Comments 04/13/2022 9:14 PM * Full Code Date Activated Date Inactivated Comments 08/03/2020 6:51 PM 04/13/2022 5:38 PM Care Teams Type Soldering Machine Tender Relationship Specialty Start Date End Date Colten Isabel [employer]OT[employer] SPECIALIST [address] [facility] [address] [place] [address] PCP - General 04/15/22
--- OUTSIDE RECORDS SUMMARY | 2025-02-22 14:17 | XMS_ITS | Clinical Summary ---
Author Organization [facility] Address [address] [place] [address] Care Team Providers Care Spot Man Name Role Phone Wilber Osei MD Primary Care Provider [phone] Allergies Active Allergy Reactions Criticality Noted Date Comments Elemental Sulfur 10/18/2011 Hydrocodone 10/18/2011 Hydrocodone-Acetaminophen 10/18/2011 Medications lisinopril (PRINIVIL,ZESTRI L) 2.5 MG tablet Take 2.5 mg by mouth daily. Active chlorothiazide (DIURIL) 250 MG tablet Take 250 mg by mouth every morning. Active Alpha-Lipoic Acid 100 MG CAPS Take by mouth. Active [place]iv[place]-3 Fatty Acids (FISH OIL) 1000 MG CAPS Take by mouth. Active Multiple Vitamin (MULTIVITAMIN) tablet Take 1 tablet by mouth daily. Active gabapentin (NEURONTIN) 300 MG capsule Take 300 mg by mouth 3 (three) times daily. Active insulin NPH (HUMULIN,NOVOLIN ) 100 UNIT/ML injection Inject into the skin. Active CHLORTHALIDONE PO Take by mouth. Active levothyroxine (SYNTHROID, LEVOTHROID) 100 MCG tablet Take 100 mcg by mouth daily. Active Cholecalciferol (VITAMIN D) 2000 UNITS tablet Take 2,000 Units by mouth daily. 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 Diabetes mellitus Sinus headache Hyperlipidemia Hypertension Thyroid disease Family History Medical History Relation Comments Heart disease Daughter Heart failure Daughter Heart attack Mother Heart failure Son Hypertension Son Relation Status Comments Brother 1 Alive Brother 2 Alive Daughter Father Maternal Grandfather Maternal Grandmother Mother Paternal Grandfather Paternal Grandmother Sister Alive Son Social History Tobacco Use Types Packs/Day Years Used Date Smoking Tobacco: Never Smokeless Tobacco: Never Alcohol Use Standard Drinks/Week Comments Yes 0 (1 standard drink = 0.6 oz pur e alcohol) Comments Unknown Sex and Gender Information Value Date Recorded Sex Assigned at Not on file Legal Sex Female 4:29 PM EST Gender Identity Not on file Sexual Orientation Not on file Last Filed Vital Signs Vital Sign Reading Time Taken Comments Blood Pressure 126/78 03/17/2012 2:12 PM EST Pulse 80 03/17/2012 2:12 PM EST Temperature - - Respiratory Rate - - Oxygen Saturation - - Inhaled Oxygen Concentration - - Weight 83.5 kg (184 lb) 10/08/2012 8:21 AM EDT Height 170.2 cm (5' 7 ) 10/08/2012 8:21 AM EDT Body Mass Index 28.82 10/08/2012 8:21 AM EDT Plan of Treatment Health Maintenance Due Date Last Done Comments Tdap/Td Vaccine >11 yo (1 - Tdap) 1959 Pneumococcal Vaccines >50 yo (1 of 1 - PCV) 1992 Shingles (Shingrix) (1 of 2) 1992 Osteoporosis Screening 2007 Diabetic Eye Exam 04/20/2012 Diabetic Foot Exam 04/20/2012 Diabetic Hemoglobin A1C 04/20/2012 Diabetic Presence of Statin 04/20/2012 Diabetic Urine Microalbumin 04/20/2012 Diabetic Creatinine Level 07/10/20122011, 07/10/2011, 07/09/2011, Additional history exists RSV 50+ and (1 - 1-dose 75+ series) 2017 Annual SDOH Screening 04/13/2024 Influenza Vaccine (#1) 2024 Haemophilus Influenzae Type B (Hib) Vaccine Aged Out No longer eligible based on patient's age to complete this topic Hepatitis A (HepA) Vaccine Aged Out N o longer eligible based on patient's age to complete this topic Hepatitis B (HepB) Vaccine Aged Out N o longer eligible based on patient's age to complete this topic Meningococcal ACWY Aged Out No longer eligible based on patient's age to complete this topic Polio (IPV) Aged Out No longer eligi ble based on patient's age to complete this topic Rotavirus (RV) Vaccine Aged Out No lo nger eligible based on patient's age to complete this topic Procedures Procedure Name Priority Date/Time Associated Diagnosis Comments BASIC METABOLIC PANEL (BMP) Routine 07/11/2011 4:00 AM EDT from Last 3 Months or Most Recently Relevant to Health Maintenance Results * (ABNORMAL) Basic Metabolic Panel(BMP) (07/11/2011 4:00 AM EDT) Sodium 131(L) 136 - 145 MMOL/L [facility] ([id number]) Potassium 3.8 3.5 - 5.1 MMOL/L [facility] ([id number]) Chloride 100 98 - 107 MMOL/L [facility] ([id number]) CO2 24 21 - 31 MMOL/L [facility] ([id number]) Glucose 152(H) 70 - 105 MG/DL [facility] ([id number]) BUN 11 7 - 25 MG/DL [facility] ([id number]) Creatinine 0.6 0.6 - 1.3 MG/DL [facility] ([id number]) Calcium 7.9(L) 8.2 - 10.0 MG/DL [facility] ([id number]) 07/11/2011 4:00 AM EDT 07/11/2011 4:26 AM EDT us Sarina Mccoy PROFESSOR OF MEDICINE LAB BLOOD ORDERABLES Final Res ult [facility] ([id number]) [address] [place] [address] from Last 3 Months or Most Recently Relevant to Health Maintenance Insurance [employer] MEDICARE REPLACEMENT Care Teams Spot Man Relationship Specialty Start Date End Date Wilber Osei MD [address] [facility] [place] [address] PCP - General 05/01/11
--- OUTSIDE RECORDS SUMMARY | 2025-02-22 14:17 | XMS_ITS | Clinical Summary ---
Author Organization [facility] Address [address] [place], [place] [address] Care Team Providers Care Clay Thrower Name Role Phone Unavailable Primary Care Provider Unavailabl e Social History Tobacco Use Types Packs/Day Years Used Date Smoking Tobacco: Never Assessed Comments Unknown Sex and Gender Information Value Date Recorded Sex Assigned at Not on file Legal Sex Female 7:01 AM EST Gender Identity Not on file Sexual Orientation Not on file Plan of Treatment Not on file
--- OUTSIDE RECORDS SUMMARY | 2025-02-22 14:17 | XMS_ITS | Data Portability ---
Author Organization [facility] Nimisha Garcia OP Address [address] [place] [address] Care Team Providers Care Geoscientist Name Role Phone ROCA, GILBERTO Primary Care Provider [phone] NANCI SANTIZO Light Fixture Servicer Unavailable SHASTA CARLSON Surgical Manager Assessment No assessment recorded. Plan of Treatment Reminders Order Date Submit Date Provider Last Modified By Organization Details Last Modified Time Details Appointments *Follow- up 15 2024 09:00A Sharita SANTIZO NP Not available Not available Not available Lab None recorded . Referral None recorded . Procedures None recorded . Surgeries None recorded . Imaging electroc ardiogra m 2024 025 WIER[facility] In-Office Order, Internal Use Only DO Not Attach Compendium DO Not Attach Compendium, Do Not Delete/merge, [id number] 12/29/2024 13:41:08 SPECT, myocardi al perfusio n, multiple [address] (Central Scheduling), [address] [place], [address], 02/20/2025 11:43:40 US, doppler echocard iogram, w/ color flow [address] ([facility]), [address] [place], [address], 02/20/2025 11:43:53 Medication Orders losartan 50 mg tablet 2024 025 [facility] [address], [address], [place], [address], 12/29/2024 11:13:06 Patient TargetsNo targets recorded. Patient InstructionsNo instructions recorded. Reason for Referral None Reported. Results Created Date Observation Date Name Description Value Unit Range Abnormal Flag Note LastModifiedBy Organization Detail LastModifiedTime 12/28/19 elect rocar diogr am No observ ation record ed. NADER In-Office Order Internal Use Only DO Not Attach Compendium DO Not Attach Compendium, Do Not Delete/merge, [id number] 12/29/2024 10:10:13 12/30/19 elect rocar diogr am No observ ation record ed. [email or web address] Not Available 14:54:11 Result Notes None recorded. 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 398361840 Active 2024 NANCI SANTIZO NP [address], [place], [address] , [place] - [facility] 17:05:30 Chronic depression 545164529 Active [address], [place], [address] , [place] - [facility] 5 17:05:47 Generalized anxiety disorder 12140161 Active 20[address], [place], [address] , [place] [facility] 17:05:53 Hypothyroidis m 27527682 Active 20[address], [place], [address] , [place] [facility] 17:06:18 Chronic kidney disease 458540014 Active 2024 NANCI SANTIZO, FUNERAL PREARRANGEMENT COUNSELOR [address] [facility] [address], [place], [address] , [place] - [facility] 17:06:30 Problem Notes None recorded. Procedures Surgical History Date Name Laterality Status Provider Name and Address Organization Details Recorded Time 04/13/19 23 Colon Surgery completed Danette Linton [place] - [facility] 12/29/2024 10:25:05 04/13/19 16 screening for malignant neoplasm of colon completed Danette [place] [facility] 12/29/2024 10:24:49 04/13/19 08 dissection of lymph node completed Danette [place] [facility] 12/29/2024 10:24:18 04/13/19 06 Lumbar Spine Surgery completed Danette [place] [facility] 12/29/2024 10:23:18 04/13/18 76 Back Surgery completed Danette [place] [facility] 12/29/2024 10:22:57 04/13/18 75 Cholecystectomy completed Danette [place] [facility] 12/29/2024 10:21:50 04/13/18 74 thyroidectomy completed Danette [place] [facility] 12/29/2024 10:22:00 04/13/18 72 Hysterectomy completed Danette [place] [facility] 12/29/2024 10:20:09 04/13/18 68 kidney operation completed Danette [place] [facility] 12/29/2024 10:20:14 Imaging Results None recorded. [...] Last Updated DateTime 167.64 cm 29.4 kg/m2 56694.8 1 g 86 /min 93 % 93 % 146/78 mm[Hg] Danette Linton [facility] 10:32:59 Social History Question Answer Notes LastModified by [email or web address] ion Details LastModified Time Tobacco Smoking Status Never Smoker Danette rao, [facility] 12/29/2024 10:19:23 Do You Have An Advance Directive? No [email or web address] Information not available 12/29/2024 Are You Blind Or Do You Have Difficulty Seeing? No [email or web address] Information not available 12/29/2024 Is Blood Transfusion Acceptable In An Emergency? Yes [email or web address] Information not available 12/29/2024 What Is Your Level Of Caffeine Consumption? Moderate [email or web address] Information not available 12/29/2024 Are You Deaf Or Do You Have Serious Difficulty Hearing? No [email or web address] Information not available 12/29/2024 What Type Of Diet Are You Following? REGULAR [email or web address] Information not available 12/29/2024 Do You Have A Medical Power Of Retail Banking Manager? Yes [email or web address] Information not available 12/29/2024 Do You Use Your Seat Belt Or Car Seat Routinely? Yes [email or web address] Information not available 12/29/2024 Do You Have Smoke And Carbon Monoxide Detectors In Your Home? Yes [email or web address] Information not available 12/29/2024 Are You Passively Exposed To Smoke? No Information not available 12/29/2024 Have You Recently Traveled Abroad? No [email or web address] Information not available 12/29/2024 Do You Have Difficulty Walking Or Climbing Stairs? No [email or web address] Information not available 12/29/2024 Do You Have Any Dietary Restrictions? No [email or web address] Information not available 12/29/2024 Sex: Female Functional Status Question Answer Note LastModified by Organizat ion Details LastModified Time Do you use any illicit or recreational drugs? No [email or web address] Information not available 12/29/2024 Do you or have you ever used any other forms of tobacco or nicotine? No [email or web address] Information not available 12/29/2024 What is your level of alcohol consumption? None [email or web address] Information not available 12/29/2024 Do you have difficulty doing errands alone? Yes [email or web address] Information not available 12/29/2024 Are you able to care for yourself independently? Yes [email or web address] Information not available 12/29/2024 Do you have difficulty dressing, bathing, grooming, or toileting? No [email or web address] Information not available 12/29/2024 Mental Status Question Answer Note LastModified by Organization D etails LastModified Time Do you have difficulty concentrating, remembering or making decisions? No [email or web address] Information no t available 12/29/2024 Family History Relationship Description Onset Age of this Age Resolved Age Notes LastModified by Organization Details LastModified Time Mother Heart disease [email or web address] Not available 12/12 10:19:02 Son Heart disease [email or web address] Not available 12/12 10:19:02 Sister Heart disease [email or web address] Not available 12/12 10:19:11 Medical History Condition Response STROKE Y KIDNEY STONES Y DIABETES Y CHRONIC PAIN N COPD N CONGESTIVE HEART FAILURE N RHEUMATOID ARTHRITIS Y HYPERTHYROIDISM N HYPOTHYROIDISM N CAROTID BLOCKAGE N SEIZURES N DEPRESSION (INCLUDING POST ) Y THYROID DISEASE Y ATHEROSCLEROSIS N HEART STENTS N GERD N ANEURYSM N FIBROMYALGIA N CORONARY ARTERY DISEASE (CAD) N CANCER Y HERNIA N HYPERCHOLESTEROLEMIA N ARTHRITIS Y USE OF BLOOD THINNERS N HEADACHES Y EMPHYSEMA N CROHN'S DISEASE N PERIPHERAL VASCULAR DISEASE N HEARTBURN / REFLUX Y HYPERLIPIDEMIA Y CAD N DVT - DEEP VEIN THROMBOSIS N BLOOD CLOTS N ASTHMA N PULMONARY DISEASE N DEMENTIA N IMPLANTED DEFIBRILLATOR N VASCULAR DISEASE N LUNG DISORDER N HYPERTENSION Y CARDIAC ARRHYTHMIA N ANXIETY DISORDER N BLOOD TRANSFUSION N ANEMIA/BLOOD DISORDER N ATRIAL FIBRILLATION N HEART DISEASE N BRAIN TUMOR N PCOS N OSTEOARTHRITIS Y HEART ATTACK (ME) N GLAUCOMA N Gynecological HistoryNo gynecological history recorded. Obstetrics History GPAL:G 0 P 0 0 0 0 Past Encounters Encounter ID Performer Location Encounter Start Date Encounter Closed Date Diagnosis/Indication Diagnosis SNOMED-CT Code Diagnosis ICD10 Code Diagnosis IMO Codes Diagnosis Note [id number] Raulito Jaimes MD [facility] [address] [place] [id number] 12/29/2024 10:07:12 12/29/2024 11:47:12 Chest pain 88120251 R07.9 85749202 - Reportedly with normal LHC in 1998- EKG without ST segment abnormalit ies- TTE and NST as below Essential hypertension 00531109 I10 31641 - Increase losartan- Educated about low sodium, heart healthy diet- Continue BP log and bring to f/u visit Polyneurop athy due to type 2 diabetes mellitus 579517319 E11.42 Z79.4 59607664 - Last a1c 6.2%, continue current regimen Health Concerns Section Related Observation LastModified by Organization Detai ls LastModified Time None Recorded Concern Status LastModified by Organization Details LastModified Time None Recorded Advance Directives Directive N: Payers Insurance Date Sequence Insurance Name Policy Number Policy Roca Covered Member ID Roca Member ID Guarantor Name 02/02/2025 1 [facility] (MEDICARE REPLACEMENT/A DVANTAGE - PPO) [id number] Josie Hammond [id number] Josie Hammond Notes Date Note Type Note [...] patient of test results. NANCI SANTIZO, VIDA [address] [facility] [address], [place], [address], [facility] 12/29/2024 11:22:19 OBGyn Episode No OBEpisode recorded.
--- OUTSIDE RECORDS SUMMARY | 2025-02-22 14:17 | XMS_ITS | Clinical Summary ---
Author Organization [facility] Address [address] [facility] [address] [place] [address] Care Team Providers Care Heating And Blending Supervisor Name Role Phone Jose Augie Rodriguez Primary Care Provider [phone] Tamia Greene MD Unavailable [phone] Allergies Active Allergy Reactions Criticality Noted Date Comments Hydrocodone-Acetaminophen 09/02/2013 Niacin And Related 03/02/2015 Other 08/11/2013 Medications ascorbic acid (Vitamin C) 500 MG tablet Take 1 tablet by mouth 1 (one) time each day. 08/11/2018 Active Cetirizine HCl 10 MG capsule Take 1 capsule by mouth 1 (one) time each day. 09/15/2019 Active ergocalciferol (Vitamin D-2) 1.25 MG (52990 UT) capsule Take 1 capsule by mouth 1 (one) time per week. 08/11/2018 Active gabapentin (Neurontin) 400 MG capsule Take by mouth. 08/04/2019 Active hydroCHLOROthia zide (Microzide) 12.5 MG capsule Take by mouth. 09/24/2015 Active insulin aspart (NovoLOG) 100 UNIT/ML injection Inject under the skin. 03/08/2018 Active levothyroxine (Synthroid, Levoxyl) 100 MCG tablet Take 1 tablet by mouth 1 (one) time each day. 08/13/2017 Active lisinopril 20 MG tablet Take 1 tablet by mouth 1 (one) time each day. 12/23/2013 Active Vitamins/Minera ls tablet Take 1 tablet by mouth 1 (one) time each day. 09/01/2017 Active Naproxen Sodium 220 MG capsule Take by mouth. 09/01/2017 Active omega-3 (Fish Oil) 1000 MG capsule Take by mouth. 09/01/2017 Active Active Problems Problem Noted Date Diagnosed Date Abdominal pain 01/17/2019 Alzheimer's disease 01/17/2019 Overview (03/20/2020): Description: (PL) Rheumatoid arthritis 01/17/2019 Overview (03/20/2020): Description: (PL) Crohn's disease 01/17/2019 Overview (03/20/2020): Description: (PL) Diarrhea 01/17/2019 Malignant neoplasm of colon 01/17/2019 Overview (03/20/2020): Description: (PL) Malignant tumor of breast 01/17/2019 Overview (03/20/2020): Description: (PL) Postoperative seroma 01/17/2019 Abnormal urine 09/20/2018 Coronary arteriosclerosis 08/11/2018 Influenza 07/06/2018 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 Atypical chest pain 08/03/2017 Electrocardiogram abnormal 08/03/2017 Dizziness 02/20/2017 Impairment of balance 11/20/2016 Arthritis 10/01/2016 Overview (03/20/2020): Description: (PL) Allergic rhinitis 06/05/2015 Wound 05/30/2015 Anxiety 05/22/2015 Abdominal colic 04/30/2015 Incontinence of feces 04/30/2015 Needs influenza immunization 02/15/2015 Requires vaccination 02/15/2015 Dysuria 10/17/2014 Absent pulse 09/14/2014 Irritable bowel syndrome 09/14/2014 Overview (03/20/2020): Description: (PL) Osteoporosis 09/14/2014 Overview (03/20/2020): Description: (PL) Renal stone 09/14/2014 Overview (03/20/2020): Description: (PL) Melanoma in situ of face 08/21/2014 Iatrogenic hypothyroidism 02/07/2014 Hereditary essential tremor 09/02/2013 Hypertensive disorder 09/02/2013 Overview (03/20/2020): Description: (PL) Hypertriglyceridemia 09/02/2013 H/O: high risk medication 08/29/2013 Type 2 diabetes mellitus 08/29/2013 Overview (03/20/2020): Description: (PL) Diabetic peripheral neuropathy 08/09/2013 Low back pain 08/09/2013 Preventative care visit 08/08/2013 Family History Medical History Relation Name Comments Arthritis Brother Osteoporosis Brother Alcohol abuse Father Arthritis Father Bipolar disorder Father COPD Father Clotting disorder Father Hypertension Father Lung cancer Father Osteoporosis Father Stroke Father Arthritis Maternal Grandfather Arthritis Maternal Grandmother Hypertension Maternal Grandmother Osteoporosis Maternal Grandmother Stroke Maternal Grandmother Anemia Mother Arthritis Mother COPD Mother Clotting disorder Mother Hypertension Mother Lung cancer Mother Osteoporosis Mother Stroke Mother Heart disease Other FAMILY HX Hypertension Other FAMILY HX Migraines Other FAMILY HX Arthritis Paternal Grandfather Stroke Paternal Grandfather Arthritis Paternal Grandmother Hypertension Paternal Grandmother Stroke Paternal Grandmother Osteoporosis Sister Relation Name Status Comments Brother Father Maternal Grandfather Maternal Grandmother Mother Other FAMILY HX Other heart disease i n females before age 65 Paternal Grandfather Paternal Grandmother Sister Social History Tobacco Use Types Packs/Day Years Used Date Smoking Tobacco: Never Alcohol Use Standard Drinks/Week Comments Not Currently 0 (1 standard drink = 0.6 oz pure alcohol) in the past 7 or less drinks per week Comments Unknown Sex and Gender Information Value Date Recorded Sex Assigned at Not on file Legal Sex Female 6:14 PM EDT Gender Identity Not on file Sexual Orientation Not on file Last Filed Vital Signs Vital Sign Reading Time Taken Comments Blood Pressure 120/60 09/15/2019 12:06 PM EDT Pulse 70 09/15/2019 12:06 PM EDT Temperature 36.8 C (98.2 F) 08/11/2018 9:34 AM EDT Respiratory Rate 20 09/15/2019 12:06 PM EDT Oxygen Saturation - - Inhaled Oxygen Concentration - - Weight 82.8 kg (182 lb 8 oz) 09/15/2019 12:06 PM EDT Height 172.7 cm (5' 8 ) 09/15/2019 12:06 PM EDT Body Mass Index 27.75 09/15/2019 12:06 PM EDT Plan of Treatment Health Maintenance Due Date Last Done Comments Bone Density Scan 1940 Medicare Annual Wellness (AWV) 1942 Diabetes: Foot Exam 1952 Diabetes: Retinopathy Screening 1952 Hepatitis B Screening 1960 DTaP/Tdap/Td Vaccines (1 - Tdap) 1961 Pneumococcal Vaccine: 50+ Years (1 of 2 - PCV) 1961 Zoster Vaccines (1 of 2) 1992 Diabetes: Hemoglobin A1C 03/22/2019 019, 05/28/2018, 07/28/2017 Diabetes: Urine Protein Screening 09/21/2019 09/20/2018 Lipid Panel 09/21/2019 09/20/2018, 05/14, 07/28/2017 Depression Risk Screening 04/13/2024 Fall Risk Screening 04/13/2024 SDOH Screening 04/13/2024 COVID-19 Vaccine ( season) 2024 Influenza Vaccine (#1) 2024 6, 02/15/2015, 02/14/2014, Additional history exists HIB Vaccines Aged Out No longer eligi ble based on patient's age to complete this topic HPV Vaccines Aged Out No longer eligi ble based on patient's age to complete this topic Hepatitis A Vaccines Aged Out No long er eligible based on patient's age to complete this topic Hepatitis B Vaccines Aged Out No long er eligible based on patient's age to complete this topic IPV Vaccines Aged Out No longer eligi ble based on patient's age to complete this topic Meningococcal B Vaccine Aged Out No l onger eligible based on patient's age to complete this topic Meningococcal Vaccine Aged Out No caryl [place] eligible based on patient's age to complete this topic Rotavirus Vaccines Aged Out No longer eligible based on patient's age to complete this topic Procedures Procedure Name Priority Date/Time Associated Diagnosis Comments HEMOGLOBIN A1C Routine 09/20/2018 10:58 AM EDT ALBUMIN, URINE, RANDOM Routine 09/20/2018 2:00 AM EDT LIPID PANEL Routine 09/20/2018 2:00 AM EDT from Last 3 Months or Most Recently Relevant to Health Maintenance Results * Hemoglobin A1c (09/20/2018 10:58 AM EDT) Hemoglobin A1C 6.2 [facility] 09/20/2018 10:5 8 AM EDT Narrative 09/20/2018 10:58 AM EDT 17Sep2018 11:28AM by Nicolle Kilgore: pt notified that they need labs done 09/17/18 cd Performed at: In Office Zarina Rodriguez OFFICE MACHINE INSPECTOR LAB BLOOD ORDERABLES Final Re sult Performing Organization Address [facility] Co de Phone Number [facility] * Albumin, urine, random (09/20/2018 2:00 AM EDT) DANIEL The ADA defines abnormalities in albumin excretion as follows: Category Result (mcg/mg creatinine) Normal <30 Microalbuminuria 30-299 Clinical albuminuria > OR = 300 The ADA recommends that at least two of three specimens collected within a 3-6 month period be abnormal before considering a patient to be within a diagnostic category. [facility] Microalb, Ur 0.4 mg/dL [facility] Comment: Result Comment: Reference Range Not established 09/20/2018 2:00 AM EDT Narrative 09/21/2018 12:00 PM EDT 17Sep2018 11:29AM by Nicolle Kilgore: pt notified that they need labs done 09/17/18 cd Zarina Rodriguez NP LAB URINE ORDERABLES Final Re sult Performing Organization Address [facility] Co de Phone Number [facility] [address] [place] [address], * (ABNORMAL) Lipid panel (09/20/2018 2:00 AM EDT) Triglycerides 345(H) <150 mg/dL [facility] Cholesterol 169 <200 mg/dL [facility] HDL 42(L) >50 mg/dL [facility] LDL Calculated 85 mg/dL (calc) [facility] Comment: Result Comment: Reference range: <100 Desirable range <100 mg/dL for primary prevention; <70 mg/dL for patients with CHD or diabetic patients with > or = 2 CHD risk factors. LDL-C is now calculated using the Damián-Keith calculation, which is a validated novel method providing better accuracy than the Friedewald equation in the estimation of LDL-C. Damián SS et al. NANCY. 2013;310(19): 9296-7444 (http://education.Lendinero/faq/WZH965) CHOL/HDLC RATIO 4.0 <5.0 (calc) [facility] Non HDL Chol. (LDL+VLDL) 127 <130 mg/dL (calc) [facility] Comment: Result Comment: For patients with diabetes plus 1 major ASCVD risk factor, treating to a non-HDL-C goal of <100 mg/dL (LDL-C of <70 mg/dL) is considered a therapeutic option. 09/20/2018 2:00 AM EDT Narrative 09/21/2018 12:00 PM EDT 17Sep2018 11:29AM by Nicolle Kilgore: pt notified that they need labs done 09/17/18 cd us Zarina Rodriguez OFFICE MACHINE INSPECTOR LAB BLOOD ORDERABLES Final Re sult [facility] [address] from Last 3 Months or Most Recently Relevant to Health Maintenance Insurance Care Teams Heating And Blending Supervisor Relationship Specialty Start Date End Date Augie Garcia DO [address] [facility] [address] [place] [address] PCP - General Family Medicine 01/06/20 Tamia Greene MD [address] [place] [address] Facility Maintenance Technician Cardiology 02/11/22
== END 2025-02-21 23:59 | disposition home or self-care (01) ==
LOC: LAB.DROPOF 02-22 13:56
PROVIDERS: Visit Provider Student in an Organized Health Care Education/Training Program
DX: N39.0 Urinary tract infection, site not specified (principal)
CPT/HCPCS: 87086; 87088; 87186